=== PATIENT | female | born 1985 | race Two or more races ===

== ENCOUNTER → 2019-05-12 | Emergency (ER) | payer OTHER ==
[~2019-05-12] VITALS: Ht 162.6 cm; Wt 49.9 kg
[~2019-05-12] MED LIST: ALBENDAZOLE200 MG PO; CEFADROXIL500 MG; FIORICET
== END | disposition home or self-care (01) ==
LOC: ER 14:51
DX: B76 Hookworm diseases (principal); R21 Rash and other nonspecific skin eruption

== ENCOUNTER 2019-07-17 13:29 | Outpatient (CLI) | payer OTHER | END 2019-07-17 13:39 | disposition home or self-care (01) | LOC: RAD 13:29 | DX: R05 Cough (principal) ==

== ENCOUNTER 2020-05-11 10:28 | Emergency (ER) | payer OTHER ==
[~2020-05-11] VITALS: Ht 162.6 cm; Wt 49.4 kg
[2020-05-11] MEDS ORDERED: FLOVENT HFA12 GM IH (10:42)
[2020-05-11] MEDS ORDERED: ZYRTEC10 MG PO (10:43)
== END 2020-05-11 18:20 | disposition home or self-care (01) ==
LOC: ER 10:28
DX: R51 Headache (principal); R20.0 Anesthesia of skin; R05 Cough; Z14.8 Genetic carrier of other disease

== ENCOUNTER 2020-05-14 01:01 | Emergency (ER) | payer OTHER ==
[~2020-05-14] VITALS: Ht 160 cm; Wt 48.5 kg
[~2020-05-14 01:01] MED LIST changes: +FLOVENT HFA12 GM IH; +ZYRTEC10 MG PO
[2020-05-14] MEDS ORDERED: CARAFATE1 GM PO (06:10)
[2020-05-14] MEDS ORDERED: PEPCID20 MG PO (06:10)
== END 2020-05-14 06:24 | disposition home or self-care (01) ==
LOC: ER 01:01
DX: K52.89 Other specified noninfective gastroenteritis and colitis (principal); R11.2 Nausea with vomiting, unspecified; Z03.818 Encounter for observation for suspected exposure to other biological agents ruled out

== ENCOUNTER 2020-08-26 13:43 | Outpatient (CLI) | payer OTHER ==
[~2020-08-26 13:43] MED LIST changes: +CARAFATE1 GM PO; +PEPCID20 MG PO
== END 2020-08-26 13:56 | disposition home or self-care (01) ==
LOC: RAD 13:43
PROVIDERS: ATTEND General Practice
DX: R05 Cough (principal)

== ENCOUNTER 2020-10-29 | Emergency (ER) | payer OTHER ==
[~2020-10-29] VITALS: Ht 162.6 cm; Wt 49.9 kg
[2020-10-29] MEDS ORDERED: [UNRECOGNIZED DRUG - OTHER] (00:11)
== END 2020-10-29 04:38 | disposition home or self-care (01) ==
LOC: ER
DX: R19.7 Diarrhea, unspecified (principal); R11.11 Vomiting without nausea

== ENCOUNTER 2021-01-10 10:20 | Emergency (ER) | payer OTHER ==
[~2021-01-10] VITALS: Ht 152.4 cm; Wt 52.6 kg
[~2021-01-10 10:20] MED LIST changes: +[UNRECOGNIZED DRUG - OTHER]
== END 2021-01-10 14:32 | disposition home or self-care (01) ==
LOC: ER 10:20
DX: G43.909 Migraine, unspecified, not intractable, without status migrainosus (principal); Z11.52 Encounter for screening for COVID-19

== ENCOUNTER 2021-05-02 12:50 | Emergency (ER) | payer OTHER ==
[~2021-05-02] VITALS: Ht 165.1 cm; Wt 53.1 kg
[2021-05-02] MEDS ORDERED: FIORICET (13:57)
[2021-05-02] MEDS ORDERED: RELPAX20 MG PO (17:15)
== END 2021-05-02 17:22 ==
LOC: ER
DX: G43.001 Migraine without aura, not intractable, with status migrainosus (principal); Z03.818 Encounter for observation for suspected exposure to other biological agents ruled out

== ENCOUNTER 2021-05-18 18:57 | Emergency (ER) | payer OTHER ==
[~2021-05-18] VITALS: Ht 162.6 cm; Wt 53.1 kg
[~2021-05-18 18:57] MED LIST changes: +RELPAX20 MG PO
== END 2021-05-19 01:22 | disposition home or self-care (01) ==
LOC: ER 18:57
DX: G43.809 Other migraine, not intractable, without status migrainosus (principal); R10.2 Pelvic and perineal pain; Z03.818 Encounter for observation for suspected exposure to other biological agents ruled out; R53.81 Other malaise